=== PATIENT | male | born 1985 | race Caucasian/White ===

== ENCOUNTER 2020-10-07 19:38 | Emergency (ER) | payer OTHER ==
[~2020-10-07] VITALS: Ht 175.3 cm; Wt 123.0 kg
[2020-10-07 23:04] LABS: BASOPHILS % 0.4 % (0.0-2.0); EOSINOPHILS % 0.4 % (0.0-5.0); HEMOGLOBIN. 14.5 g/dL (14.0-18.0); LYMPHOCYTES % 26.3 % (20.0-50.0); MEAN CORPUSCULAR HEMOGLOBIN 29.8 pg (28.0-32.0); MEAN CORPUSCULAR VOLUME 86.4 fL (80.0-94.0); MEAN PLATELET VOLUME 7.4 fl (7.4-10.4); NEUTROPHILS % 65.9 % (40.0-76.0); PLATELET 156 x1000/uL (130-400); RED BLOOD CELL COUNT 4.86 mill/uL (4.7-6.1); RED CELL DISTRIBUTION WIDTH 13.1 % (11.6-14.6)
[2020-10-07 23:11] LABS: CHLORIDE 105 mEq/L (98-107)
[2020-10-08] MEDS ORDERED: IBUP-2029 MT (01:02)
[2020-10-08 01:45] VITALS: BP 121/68
== END 2020-10-08 01:56 | disposition home or self-care (01) ==
LOC: ER 19:38
DX: R10.12 Left upper quadrant pain (principal); Z98.890 Other specified postprocedural states
CPT/HCPCS: 36415; 74176; 80053; 85025; 93005; 99285